=== PATIENT | male | born 1980 | race African-American/Black ===

== ENCOUNTER 2020-05-14 13:42 | Emergency (ER) | payer OTHER ==
[~2020-05-14] VITALS: Ht 170.2 cm; Wt 76.2 kg
--- NOTE | 2020-05-14 14:05 | NUR ---
ED Nurse Note: Patient walked into ED c/o back injury at work today. Patient states that he injured his back while lifting a patient at a [facility] today. Patient AxO x 4, pain is currently 8/10, feels like "muscle strain", exacerbated when extending lower back.
[2020-05-14 14:08] VITALS: BP 118/70
--- NOTE | 2020-05-14 14:15 | NUR ---
ED Nurse Note: Radha SOSA at bedside.
[2020-05-14] MEDS ORDERED: Methocarbamol 500mg tab ORAL ONE (14:30)
--- NOTE | 2020-05-14 14:40 | Emergency Room Report ---
History of Present Illness General Chief Complaint: Lower Back Pain or Injury Source: Patient Present Illness HPI 39-year-old male presents to the emergency department complaining of 8 out of 10 severity low back pain is diffuse with an acute onset while he was lifting a patient at work earlier this morning. He denies trauma or fall. He denies suspicion of fractures. He denies previous history of back injury. Patient reports he has difficulty finding a comfortable position. He describes having a constant dull ache primarily when he is bending forward or attempting to lay flat. Patient denies having pain upon palpation. Denies numbness tingling or loss of sensation or gross motor movements of the extremities, incontinence of bowel or bladder. Denies CP, Palpitations, LOC, AMS, dizziness, Changes in Vision, weakness or a sudden severe headache. He denies recent injections or spinal procedures. He reports taking Motrin [employer]. Allergies: Coded Allergies: No Known Allergies (Unverified , 05/14/20) COVID-19 Screening Contact w/high risk pt: No Experienced COVID-19 symptoms?: No COVID-19 Testing performed [employer]: Yes - 04/30/20 COVID-19 Screening: Negative COVID-19 COVID-19 Testing Source: nasopharynx Patient History Past Medical History: see triage record Past Surgical History: none Pertinent Family History: none Reviewed Nursing Documentation: PMH: Agreed; PSxH: Agreed Nursing Documentation-PMH Past Medical History: No Stated History Review of Systems All Other Systems: negative except mentioned in HPI Physical Exam Vital Signs Date Time Temp Pulse Resp B/P (MAP) Pulse Ox O2 Delivery O2 Flow Rate FiO2 05/14/20 13:49 98.4 74 18 118/70 (86) 95 Room Air Sp02 EP Interpretation: reviewed, normal General Appearance: no apparent distress, alert, GCS 15, non-toxic Head: normocephalic, atraumatic Eyes: bilateral eye normal inspection, bilateral eye PERRL ENT: hearing grossly normal, normal voice Neck: full range of motion Respiratory: lungs clear, normal breath sounds, speaking full sentences Cardiovascular #1: regular rate, rhythm Gastrointestinal: non tender, soft Genitourinary: normal inspection, no CVA tenderness Musculoskeletal: normal range of motion, gait/station normal, non-tender - NO appreciable tenderness to palpation to paraspinal muscles of the lower back or midline tenderness. PT. localizes having pain at rest in that area. No CVA tenderness. , other - No midline spinous process ttp. No palpable step-offs or obvious deformities of the cervical, lumbar, or sacral spine. Neurologic: alert, motor strength/tone normal, oriented x3, sensory intact, responsive, speech normal Psychiatric: judgement/insight normal Skin: no rash, normal color Medical Decision Making PA Attestation Dr. Moss is my supervising Physician whom patient management has been discussed with. Diagnostic Impression: Primary Impression: Lumbar spine strain Qualified Codes: S39.012A - Strain of muscle, fascia and tendon of lower back , initial encounter Additional Impression: Low back pain Qualified Codes: M54.5 - Low back pain ER Course 39-year-old male presents to the emergency department complaining of 8 out of 10 severity low back pain is diffuse with an acute onset while he was lifting a patient at work earlier this morning. He denies trauma or fall. He denies suspicion of fractures. He denies previous history of back injury. Patient reports he has difficulty finding a comfortable position. He describes having a constant dull ache primarily when he is bending forward or attempting to lay flat. Patient denies having pain upon palpation. Denies numbness tingling or loss of sensation or gross motor movements of the extremities, incontinence of bowel or bladder. Denies CP, Palpitations, LOC, AMS, dizziness, Changes in Vision, weakness or a sudden severe headache. He denies recent injections or spinal procedures. He reports taking Motrin [employer]. Ddx considered: epidural abscess, fracture, sprain/strain, meningitis, spinal chord injury, sciatica, cauda equina, Pyelonephritis, renal calculi just to name a few. Vital signs reviewed and are WNL during ED visit. Pt. is afebrile with no signs of infection No new symptoms, and denies recent trauma. No saddle anesthesia noted, Pt. denies incontinence Neurovascular is intact * NO appreciable tenderness to palpation to paraspinal muscles of the lower back or midline tenderness. PT. localizes having pain at rest in that area. No CVA tenderness. *Pt. describes pain today as moderate and radiates across the lower back. ORDERS: none warranted at this time. INTERVENTIONS: - 1g Robaxin PO - Lidoderm TP -I do not identify an emergent condition at this time. With current presentation, pt. is stable for close outpatient follow up and conservative treatment. D/w pt. to return promptly to ED with worsening or new symptoms.- Pt. verbalizes' understanding and agreement with proposed treatment plan. DISCHARGE: At this time pt. is stable for d/c to home. Will provide printed patient care instructions, and any necessary prescriptions. Care plan and follow up instructions have been discussed with the patient prior to discharge. Last Vital Signs Date Time Temp Pulse Resp B/P (MAP) Pulse Ox O2 Delivery O2 Flow Rate FiO2 05/14/20 14:08 98.4 74 18 118/70 95 Room Air Disposition: HOME, SELF-CARE Condition: Stable Scripts Lidocaine Patch* (Lidoderm Patch*) 1 Each Adh..patch 1 PATCH TOPIC DAILY, #30 PATCH 0 Refills Patch(es) may remain in place for up to 12 hours in any 24-hour period. Prov: Radha Cedeno 05/14/20 Ibuprofen* (MOTRIN*) 600 Mg Tablet 600 MG ORAL THREE TIMES A DAY, #20 TAB Prov: Radha Cedeno 05/14/20 Methocarbamol* (ROBAXIN-750*) 750 Mg Tablet 750 MG PO QID, #28 TAB 0 Refills Prov: Radha Cedeno 05/14/20 Referrals: NOT CHOSEN IPA/MD,REFERRING (PCP) Departure Forms: Return to Work Return to Work Date: May 18, 2020 Other Restrictions: Light duty. May return Sooner if Symptoms have resolved. Return to Full Activity: May 26, 2020 Work Restrictions: No Heavy Lifting Patient Instructions: Lumbosacral Strain, Back Pain, Adult Additional Instructions: Take medications as directed. Do not drink alcohol, drive, or operate heavy machinery while taking Robaxin ( Muscle Relaxers) as this may cause drowsiness. ~ ~ An emergent medical condition has not been identified based on this patients presentation, exam and any necessary testing/imaging. The patient is determined to be stable for outpatient follow-up and management of symptoms by a primary care provider. Follow up with a Primary Care Provider in 3-5 days, even if your symptoms have resolved. RE-eval after conservative treatment with medications. Return sooner to ED if new symptoms occur, or current symptoms become worse. - Please note that this Emergency Department Report was dictated using [employer] technology software, occasionally this can lead to erroneous entry secondary to interpretation by the dictation equipment. Radha Cedeno May 14, 2020 14:40
[2020-05-14] MEDS ORDERED: LIDODERM700 M1 TOPIC (14:41)
[2020-05-14] MEDS ORDERED: ROBAXIN-750750 MG PO (14:41)
[2020-05-14] MEDS ORDERED: IBUPROFEN600 M1 ORAL (14:41)
[2020-05-14 14:44] VITALS: BP 121/72
--- NOTE | 2020-05-14 14:44 | NUR ---
ER DISCHARGE NOTE: Patient is cleared to be discharged per Radha SOSA, pt is aox4, on room air, with stable vital signs. pt was given dc and prescription instructions, pt was able to verbalize understanding, pt id band removed. pt is able to ambulate with steady gait. pt took all belongings. Workman's comp forms given to patient and reviewed.
== END 2020-05-14 14:44 | disposition home or self-care (01) ==
LOC: EMR 14:04
DX: S39.012A Strain of muscle, fascia and tendon of lower back, initial encounter (principal); M54.5 Low back pain; X50.0XXA Overexertion from strenuous movement or load, initial encounter; Y92.9 Unspecified place or not applicable
CPT/HCPCS: 99282